=== PATIENT | female | born 1990 | race Caucasian/White ===

== ENCOUNTER → 2016-10-16 | Outpatient (CLI) | payer OTHER | END | disposition home or self-care (01) | LOC: YCFC.O 15:39 | PROVIDERS: ATTEND Nurse Practitioner Family | DX: N93.9 Abnormal uterine and vaginal bleeding, unspecified (principal) ==

== ENCOUNTER → 2016-10-17 | Outpatient (CLI) | payer SELFPAY ==
--- NOTE | 2016-10-20 05:24 | US ---
Endovaginal pelvic sonogram CLINICAL HISTORY: Pelvic pain FINDINGS: Uterus measures 9.7 x 6.6 x 4.5 cm. Endometrial stripe is normal, 3 mm Along the posterior myometrium abutting the endometrial stripe there is a 3.4 x 2.1 x 1.1 cm mildly hyperechoic region. This could be fibroid or possibly adenomyosis There is a fundal myometrial fibroid measuring 1.1 x 1.2 x 1.1 cm. Both ovaries are normal in size and appearance. 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
== END | disposition home or self-care (01) ==
LOC: US 08:40
PROVIDERS: ATTEND Nurse Practitioner Family
DX: R10.9 Unspecified abdominal pain (principal)

== ENCOUNTER 2017-10-10 14:44 | Emergency (ER) | payer BC, SELFPAY ==
[2017-10-10 15:07] VITALS: TEMP 99.2
--- NOTE | 2017-10-10 15:23 | ED.PDOC ---
History of Present Illness - General Chief Complaint: GI Problem Stated Complaint: nausea with Time Seen by Provider: 10/10/17 15:18 Source: patient Exam Limitations: no limitations - History of Present Illness Initial Comments: Raisa Vela 26 y/o female stated that she had nausea vomiting since she found out that she was on test done with home kit 3-4 weeks ago.Denies vaginal bleeding ,abdominal pains.She is ab2;LMP-2016.Had in the past. Timing/Duration: intermittent, other - see hpi Severity: moderate Improving Factors: nothing Associated Symptoms: denies symptoms Allergies/Adverse Reactions: Allergies NO KNOWN ALLERGY Allergy (Verified 10/10/17 15:07) Home Medications: Ambulatory Orders Doxylamine-Pyridoxine [Diclegis] 2 tab PO PCHS #60 tab 10/10/17 Review of Systems - Review of Systems Constitutional: States: no symptoms reported EENTM: States: no symptoms reported Respiratory: States: no symptoms reported Gastrointestinal/Abdominal: States: see HPI Genitourinary: States: no symptoms reported Musculoskeletal: States: no symptoms reported Skin: States: no symptoms reported Neurological: States: no symptoms reported All other Systems: Reviewed and Negative, No Change from Baseline Past Medical History (General) - Patient Medical History Hx Seizures: No Hx Stroke: No Hx Dementia: No Hx Asthma: No Hx of COPD: No Hx Cardiac Disorders: No Hx Congestive Heart Failure: No Hx Pacemaker: No Hx Hypertension: No Hx Thyroid Disease: No Hx Diabetes: No Hx Gastroesophageal Reflux: No Hx Renal Disease: Yes - recent UTI Hx Cancer: No Hx of HIV: No Hx Hepatitis C: No Hx MRSA: No Surgical History: no surgical history - Vaccination History Hx Tetanus, Diphtheria Vaccination: Yes Hx Influenza Vaccination: No Hx Pneumococcal Vaccination: No - Social History Hx Tobacco Use: Yes Hx Alcohol Use: No Hx Substance Use: No Hx Substance Use Treatment: No Hx Depression: No Hx Physical Abuse: No Hx Emotional Abuse: No Hx Suspected Abuse: No - Female History Patient is a Female of Child Bearing Age (10 -59 yrs old): Yes Hx Last Menstrual Period: 08/20/17 Patient : Yes Expected Date of Delivery:: 07/08/18 Hx Gestational Age: 3 Family Medical History - Family History Mother Family History: Unknown Living Status: Still Living Hx Family Hypertension: Yes - grandmother Hx Family Stroke: Yes - grandfather Hx Family Cancer: Yes - unsure Physical Exam - Physical Exam General Appearance: Alert, Comfortable, No apparent distress Eye Exam: bilateral normal Ears, Nose, Throat: hearing grossly normal, normal ENT inspection Neck: non-tender, supple Respiratory: chest non-tender, lungs clear, normal breath sounds Cardiovascular/Chest: normal peripheral pulses, regular rate, rhythm, no murmur Peripheral Pulses: radial,right: 2+, radial,left: 2+ Gastrointestinal/Abdominal: normal bowel sounds, non tender, soft, no organomegaly Extremity: non-tender, no pedal edema, no calf tenderness Neurologic: alert, oriented x 3 Skin Exam: normal color, warm/dry Lymphatic: no adenopathy Progress - Progress Progress: 10/10/17 15:28 Last Vital Signs Temp 99.2 F 10/10/17 14:59 Pulse 76 10/10/17 15:05 Resp 18 10/10/17 15:05 BP 124/76 10/10/17 15:05 Pulse Ox 98 10/10/17 14:59 - Results/Orders Results/Orders: 10/10/17 15:29 Lactated Ringers [Lr] 1,000 ml IVS ONCE Laboratory Results - last 24 hr 10/10/17 10/10/17 10/10/17 15:29 15:40 15:40 WBC 9.8 RBC 4.34 Hgb 13.3 Hct 39.5 MCV 91.0 MCH 30.7 MCHC 33.7 RDW 12.6 Plt Count 207 MPV 8.9 Absolute Neuts (auto) 7.80 H Absolute Lymphs (auto) 1.30 Absolute Monos (auto) 0.60 Absolute Eos (auto) 0.10 Absolute Basos (auto) 0.00 Neutrophils % 79.5 H Lymphocytes % 13.5 L Monocytes % 6.1 Eosinophils % 0.6 L Basophils % 0.3 Sodium 138 Potassium 3.6 Chloride 107 Carbon Dioxide 22 Anion Gap 12.6 BUN 8 Creatinine 0.60 BUN/Creatinine Ratio 13.3 Random Glucose 90 Serum Osmolality 273.5 L Calcium 9.1 Total Bilirubin 0.2 AST 16 ALT 14 Alkaline Phosphatase 47 Serum Total Protein 7.4 Albumin 4.0 Globulin 3.4 Albumin/Globulin Ratio 1.2 Urine Color Urine Appearance Urine pH Ur Specific [place] Urine Protein Urine Glucose (UA) Urine Ketones Urine Blood Urine Nitrite Urine Bilirubin Urine Urobilinogen Ur Leukocyte Esterase Urine RBC Urine WBC Ur Epithelial Cells Urine Bacteria Urine HCG, Qual Positive 10/10/17 16:06 WBC RBC Hgb Hct MCV MCH MCHC RDW Plt Count MPV Absolute Neuts (auto) Absolute Lymphs (auto) Absolute Monos (auto) Absolute Eos (auto) Absolute Basos (auto) Neutrophils % Lymphocytes % Monocytes % Eosinophils % Basophils % Sodium Potassium Chloride Carbon Dioxide Anion Gap BUN Creatinine BUN/Creatinine Ratio Random Glucose Serum Osmolality Calcium Total Bilirubin AST ALT Alkaline Phosphatase Serum Total Protein Albumin Globulin Albumin/Globulin Ratio Urine Color Yellow Urine Appearance Clear Urine pH 7.0 Ur Specific [place] 1.015 Urine Protein Negative Urine Glucose (UA) Negative Urine Ketones Negative Urine Blood Negative Urine Nitrite Negative Urine Bilirubin Negative Urine Urobilinogen 0.2 Ur Leukocyte Esterase Negative Urine RBC 0 Urine WBC 0 Ur Epithelial Cells 0 Urine Bacteria 0 Urine HCG, Qual Departure - Departure Clinical Impression: with fewer than 8 completed weeks gestation, Hyperemesis gravidarum Time of Disposition: 16:24 Disposition: Discharge to Home or Self Care Condition: Good Departure Forms: ED Discharge - Pt. Copy, Patient Portal Self Enrollment Instructions: Hyperemesis Gravidarum, DI for Hyperemesis Gravidarum Referrals: Cristiana Rodriguez NP [Primary Care Provider] - 1-2 Weeks Prescriptions: Doxylamine-Pyridoxine [Diclegis] 2 tab PO P[facility]S #60 tab Home Medications: Ambulatory Orders Doxylamine-Pyridoxine [Diclegis] 2 tab PO P[facility]S #60 tab 10/10/17 Additional Instructions: NEED TO MAKE APPOINTMENT WITH ENGINE TEST CELL TECHNICIAN DR. FARSHAD JOSE
[2017-10-10] MEDS ORDERED: ONDANSETRON INJ 4 MG/2 ML VIAL IV ONE (15:29)
[2017-10-10] MEDS ORDERED: LACTATED RINGERS 1,000 ML IVS ONE (15:29)
[2017-10-10 16:46] VITALS: BP 98/64; O2SAT 96
== END 2017-10-10 16:46 | disposition home or self-care (01) ==
LOC: ER 14:44
DX: O21.0 Mild hyperemesis gravidarum (principal); Z3A.08 8 weeks gestation of pregnancy
CPT/HCPCS: 36415; 80053; 81001; 81025; 85025; J2405; J7120